=== PATIENT | female | born 1955 | race Caucasian/White ===

== ENCOUNTER → 2016-12-24 | Outpatient (CLI) | payer OTHER ==
[~2016-12-24] MED LIST: ASPIR-LOW81 MG PO; BACTRIM DS 8001 TAB PO; FISH OIL1 IU PO; LORTAB 5/500 501 TAB PO; METRONIDAZOLE500 MG PO; MVI
== END ==
LOC: COL.RAD 07:25
DX: K57.30 Diverticulosis of large intestine without perforation or abscess without bleeding (principal); K44.9 Diaphragmatic hernia without obstruction or gangrene; R10.814 Left lower quadrant abdominal tenderness
CPT/HCPCS: Q9967

== ENCOUNTER → 2017-10-22 | Outpatient (CLI) | payer OTHER | LOC: MC.RAD 09:56 | DX: Z12.31 Encounter for screening mammogram for malignant neoplasm of breast (principal) ==

== ENCOUNTER → 2018-10-14 | Outpatient (CLI) | payer MEDICARE | LOC: MC.RAD 10-13 09:20 | DX: Z12.31 Encounter for screening mammogram for malignant neoplasm of breast (principal) ==

== ENCOUNTER → 2018-10-25 | Outpatient (CLI) | payer MEDICARE | LOC: MC.RAD 09:16 | DX: Z12.31 Encounter for screening mammogram for malignant neoplasm of breast (principal) ==

== ENCOUNTER → 2019-10-27 | Outpatient (CLI) | payer MEDICARE | LOC: MC.RAD 10:15 | DX: Z12.31 Encounter for screening mammogram for malignant neoplasm of breast (principal); M81.0 Age-related osteoporosis without current pathological fracture ==

== ENCOUNTER → 2020-10-28 | Outpatient (CLI) | payer MEDICARE | LOC: MC.RAD 10:30 | DX: Z12.31 Encounter for screening mammogram for malignant neoplasm of breast (principal) ==

== ENCOUNTER → 2021-11-19 | Outpatient (CLI) | payer MEDICARE | LOC: MC.RAD 11:30 | DX: Z12.31 Encounter for screening mammogram for malignant neoplasm of breast (principal) ==

== ENCOUNTER 2022-12-01 10:15 | Outpatient (RCR) | payer MEDICARE | END 2022-12-15 | disposition home or self-care (01) | LOC: PT.GENESIS | DX: M25.561 Pain in right knee (principal) ==

== ENCOUNTER 2023-07-05 08:30 | Outpatient (RCR) | payer MEDICARE | END 2023-07-15 | disposition home or self-care (01) | LOC: PT.GENESIS | DX: M53.3 Sacrococcygeal disorders, not elsewhere classified (principal); M25.551 Pain in right hip; M25.561 Pain in right knee; M76.30 Iliotibial band syndrome, unspecified leg; M54.2 Cervicalgia; R51.9 Headache, unspecified ==

== ENCOUNTER 2023-08-13 13:45 | Outpatient (RCR) | payer MEDICARE | END 2023-08-13 14:59 | disposition home or self-care (01) | LOC: PT.GENESIS 13:45 | DX: M76.31 Iliotibial band syndrome, right leg (principal); M53.3 Sacrococcygeal disorders, not elsewhere classified; M25.561 Pain in right knee ==

== ENCOUNTER → 2023-12-14 | Outpatient (CLI) | payer MEDICARE | LOC: MC.RAD 08:06 | DX: Z12.31 Encounter for screening mammogram for malignant neoplasm of breast (principal) ==

== ENCOUNTER 2024-03-23 11:15 | Outpatient (RCR) | payer MEDICARE ==
[~2024-03-23 11:15] MED LIST changes: -ASPIR-LOW81 MG PO; +ASPIRIN 81M81 MG/TA2 PO; +CALCIUM 600MG+D1 TAB PO; +DESYREL 50MG50 MG PO; -FISH OIL1 IU PO; -MVI; +OMEGA-3 1000 MG1 CAP PO; +TOPROL XL 25MG25 MG PO; +VITAMIN D31000 IU PO; +WOMEN'S DAILY1 TAB PO
== END 2024-04-14 | disposition home or self-care (01) ==
LOC: PT.GENESIS
DX: M48.02 Spinal stenosis, cervical region (principal)